=== PATIENT | male | born 1975 | race Caucasian/White ===

== ENCOUNTER 2023-06-12 14:35 | Emergency (ER) | payer OTHER ==
[~2023-06-12] VITALS: Ht 190.5 cm; Wt 167.8 kg
[2023-06-12] MEDS ORDERED: ENBREL50 MG/1 M2 SQ (14:59)
[2023-06-12] MEDS ORDERED: TOUJEO MAX300 UNIT/1 SQ (15:00)
[2023-06-12] MEDS ORDERED: NOVOLOG100 UNIT/1 SC (15:01)
[2023-06-12] MEDS ORDERED: OZEMPIC2 MG/0.71 SQ (15:01)
[2023-06-12] MEDS ORDERED: TREXALL10 MG PO (15:02)
[2023-06-12] MEDS ORDERED: NAPROXEN250 MG PO (15:03)
[2023-06-12] MEDS ORDERED: ATIVAN1 MG PO (15:03)
[2023-06-12] MEDS ORDERED: XARELTO10 MG PO (15:03)
[2023-06-12] MEDS ORDERED: IRBESARTAN150 MG PO (15:04)
[2023-06-12] MEDS ORDERED: VITAMIN D-40010 MCG PO (15:05)
[2023-06-12] MEDS ORDERED: B-COMPLEX PLU400 MCG PO (15:05)
[2023-06-12] MEDS ORDERED: GABAPENTIN600 MG PO (15:06)
[2023-06-12] MEDS ORDERED: NEURONTIN300 MG PO (15:06)
[2023-06-12] MEDS ORDERED: LANSOPRAZOLE30 MG PO (15:07)
[2023-06-12] MEDS ORDERED: BUSPIRONE HCL15 MG PO (15:07)
[2023-06-12] MEDS ORDERED: SIMVASTATIN10 MG PO (15:08)
[2023-06-12] MEDS ORDERED: MONTELUKAST SOD10 MG PO (15:08)
[2023-06-12] MEDS ORDERED: OLANZAPINE20 M2 PO (15:08)
[2023-06-12] MEDS ORDERED: PROVENTIL HFA6.7 GM INH (15:09)
[2023-06-12] MEDS ORDERED: MAGNESIUM500 MG PO (15:09)
[2023-06-12 16:39] LABS: BASO # 0.1 10*3/uL (0.0-0.1); BASO % 0.4 % (0.0-1.0); EOS # 0.1 10*3/uL (0.0-0.4); EOS % 0.6 % (1.0-4.0); HEMATOCRIT 47.5 % (42.0-52.0); LYMPH # 2.1 10*3/uL (1.3-4.4); MEAN CELL VOLUME 94.4 fl (80.0-94.0); MEAN CORPUSCULAR HGB CONC 31.8 g/dl (33.0-37.0); MEAN PLATELET VOLUME 8.6 fl (9.6-12.3); MONO # 1.1 10*3/uL (0.1-1.0); MONO % 6.4 % (3.0-9.0); NEUT % 79.1 % (47.0-73.0); PLATELET COUNT AUTOMATED 390 10*3/uL (130-400); RED BLOOD COUNT 5.03 10*6/uL (4.50-5.90); RED CELL DISTRI WIDTH 15.1 % (0-14.5); WHITE BLOOD COUNT 16.4 10*3/uL (4.8-10.8)
[2023-06-12 16:49] LABS: BILIRUBIN Negative (Negative); BLOOD Negative (Negative); CLARITY Clear (Clear); COLOR Yellow (Yellow); GLUCOSE Negative (Negative); KETONE 1+ (Negative); LEUKO ESTERASE Negative (Negative); NITRITE Negative (Negative); PH 6.5 (4.5-8.0)
[2023-06-12 16:57] LABS: URINE AMPHETAMINES Negative (1000ng/ml); URINE BARBITURATES Negative (200ng/ml); URINE BENZODIAZEPINES Negative (200ng/ml); URINE CANNABINOIDS (THC) Positive (50ng/ml); URINE COCAINE Negative (300ng/ml); URINE METHADONE Negative (300ng/ml); URINE OPIATES Negative (300ng/ml); URINE PHENCYCLIDINE Negative (25ng/ml)
[2023-06-12 17:00] LABS: ALKALINE PHOSPHATASE 67 U/L (46-116); BUN 10 mg/dl (9-23); CHLORIDE 108 mmol/L (98-107); ETHYL ALCOHOL 4.4 mg/dl (<3); POTASSIUM 3.6 mmol/L (3.4-5.1); SGPT/ALT 16 U/L (5-49); TOTAL PROTEIN 7.1 gm/dL (6.0-8.0)
[2023-06-12 17:08] LABS: EPITHELIAL CELLS 0-2; WBC 0-2 wbc/hpf (0-5)
== END 2023-06-12 21:44 | disposition left against medical advice (07) ==
LOC: ED 14:35
PROVIDERS: Physician Assistant Medical
DX: F41.9 Anxiety disorder, unspecified (principal); Z53.29 Procedure and treatment not carried out because of patient's decision for other reasons; Z88.8 Allergy status to other drugs, medicaments and biological substances; Z88.2 Allergy status to sulfonamides; Z79.899 Other long term (current) drug therapy